=== PATIENT | male | born 1955 | race Caucasian/White ===

== ENCOUNTER 2017-03-24 08:07 | Outpatient (RCR) ==
[2017-03-24 08:48] VITALS: TEMP 98.1; BMI 34.4
[2017-04-18 08:59] VITALS: BP 128/54
== END 2017-04-18 ==
LOC: CAR.REHAB 08:07
PROVIDERS: ATTEND Internal Medicine
DX: Z95.5 Presence of coronary angioplasty implant and graft (principal)
CPT/HCPCS: 93798

== ENCOUNTER 2017-04-21 06:40 | Outpatient (RCR) ==
[2017-05-12 08:49] VITALS: BP 132/58
== END 2017-05-19 ==
LOC: CAR.REHAB 06:40
PROVIDERS: ATTEND Internal Medicine
DX: Z95.5 Presence of coronary angioplasty implant and graft (principal)
CPT/HCPCS: 93798

== ENCOUNTER 2017-05-20 07:26 | Outpatient (RCR) ==
[2017-06-19 08:59] VITALS: BP 132/60
== END 2017-06-19 ==
LOC: CAR.REHAB 07:26
PROVIDERS: ATTEND Internal Medicine
DX: Z95.5 Presence of coronary angioplasty implant and graft (principal)
CPT/HCPCS: 93798

== ENCOUNTER 2017-06-20 06:51 | Outpatient (RCR) ==
[2017-07-10 09:08] VITALS: BP 118/52
== END 2017-07-10 09:00 | disposition home or self-care (01) ==
LOC: CAR.REHAB 06:51
PROVIDERS: ATTEND Internal Medicine
DX: Z95.5 Presence of coronary angioplasty implant and graft (principal)
CPT/HCPCS: 93798

== ENCOUNTER 2018-02-09 22:39 | Outpatient (CLI) | payer OTHER | END 2018-02-09 22:40 | disposition short-term general hospital (02) | LOC: AMBL 22:39 | PROVIDERS: ATTEND Internal Medicine Geriatric Medicine | DX: E11.65 Type 2 diabetes mellitus with hyperglycemia (principal); R40.4 Transient alteration of awareness; R41.82 Altered mental status, unspecified; I45.10 Unspecified right bundle-branch block; Z79.4 Long term (current) use of insulin; Z86.69 Personal history of other diseases of the nervous system and sense organs ==